=== PATIENT | male | born 1955 | race Caucasian/White ===

== ENCOUNTER 2023-08-23 15:37 | Outpatient (RCR) | payer OTHER, SELFPAY | END 2023-08-24 07:35 | disposition home or self-care (01) | LOC: RPT 15:37 | PROVIDERS: ATTENDING PHYSICIAN Orthopaedic Surgery; FAMILY PHYSICIAN Family Medicine | DX: Z47.1 Aftercare following joint replacement surgery (principal); Z96.642 Presence of left artificial hip joint; Z73.6 Limitation of activities due to disability | CPT/HCPCS: 97110 ==

== ENCOUNTER → 2023-10-25 15:22 | Outpatient (REF) | payer OTHER, SELFPAY | LOC: RAD 15:22 | PROVIDERS: ATTENDING PHYSICIAN Nurse Practitioner Family | DX: M79.672 Pain in left foot (principal) | CPT/HCPCS: 73630 ==

== ENCOUNTER → 2023-11-01 15:49 | Outpatient (REF) | payer OTHER, SELFPAY | LOC: RAD 15:49 | PROVIDERS: ATTENDING PHYSICIAN Internal Medicine Cardiovascular Disease; FAMILY PHYSICIAN Family Medicine | DX: I77.1 Stricture of artery (principal) | CPT/HCPCS: 73206; Q9967 ==

== ENCOUNTER 2024-04-30 15:04 | Emergency (ER) | payer OTHER, SELFPAY ==
[2024-04-30] VITALS (20 sets, daily range): BP systolic 103–241; BP diastolic 80–132; BMI 22.2
--- NOTE | 2024-04-30 17:47 | EDRN ---
Dr. Dos Santos in room w/ pt at this time.
[2024-04-30] MEDS: PEN VK 500 MG PO (18:07)
--- NOTE | 2024-04-30 18:49 | ED.GENMED ---
History of Present Illness
General
Chief Complaint: Dental Problem
Source: patient
Exam Limitations: none
Time Seen by Provider: 04/30/24 17:38
History of Present Illness
History of Present Illness:
69-year-old male who presents with left lower dental pain. He states that it started a few days ago and the pain is just getting worse and he cannot handle. He has an appoint with his dentist tomorrow. Patient states he just cannot think and
sleep because of the pain. He admits that he used to be on blood pressure medication but he no longer takes it. Patient does smoke. No fevers. No facial swelling
Past History
Past History
ED Past Medical History: HTN (takes Lisinopril) and Psychiatric (depression takes Effexor)
ED Past Surgical History: Appendectomy
Social History
Tobacco: Smoker
Alcohol: Occasional
Personal:
Living: with family
Employment: Employed ([employer])
Phy Exam
Physical Exam
Physical Exam:
CONSTITUTIONAL Vital signs reviewed, Patient alert and oriented to person, place and time. Well-appearing
HEAD atraumatic, normocephalic.
EYES eyelids normal to inspection, Extraocular muscles intact, Conjunctiva normal, Sclera normal.
ENT tenderness to the left lower molar when palpated. No gingival swelling. No trismus.
NECK normal range of motion, Trachea midline, no jugular venous distention.
RESP no respiratory distress
BACK No obvious deformities
UPPER EXTREMITY Gross Range of motion normal, gross motor strength normal
LOWER EXTREMITY Gross range of motion normal, Gross motor strength normal
NEURO Speech normal, No focal motor deficits include, [place] coma scale 15, Memory normal, Cranial Nerves intact to screening exam.
SKIN Skin warm, dry, and normal in color.
PSYCHIATRIC Patient oriented to person place and time, Normal affect.
Course
Orders/Labs/Results
Orders:
Orders
04/30/24 18:03
Penicillin V Potassium [Pen Vk] 500 mg PO NOW STA
04/30/24 19:01
Electrocardiogram (*1) Urgent
Reason for Study: Chest Pain
IV Insert/Care/Rem.- Treatment PRN
04/30/24 19:02
EKG- Treatment ONCE
04/30/24 19:06
Basic Metabolic Panel Urgent
Complete Blood Count/With Diff Urgent
04/30/24 19:27
Labetalol HCl [Trandate] 10 mg IV NOW STA
04/30/24 19:57
Amlodipine [Norvasc] 5 mg PO NOW STA
04/30/24 20:22
HydrALAZINE [Apresoline] 10 mg IV NOW STA
Abnormal Lab Results
04/30/24
19:06
WBC 13.3 H 10^3/uL
(4.8-10.8)
RBC 4.69 L 10^6/uL
(4.70-6.10)
Absolute Neuts (auto) 9.5 H 10^3/uL
(1.4-6.5)
Absolute Monos (auto) 1.1 H 10^3/uL
(0.1-0.6)
Lymphocytes % 17.8 L %
(20.5-51.1)
04/30/24 19:06
04/30/24 19:06
Vital Signs
Initial and Last Documented VS:
Initial Vital Signs
Temp Pulse Resp BP Pulse Ox
98.5 F 85 16 159/89 99
04/30/24 15:07 04/30/24 15:07 04/30/24 15:07 04/30/24 15:07 04/30/24 15:07
Last Documented Vital Signs
Temp Pulse Resp BP Pulse Ox
98.5 F 76 13 120/95 98
04/30/24 15:07 04/30/24 21:30 04/30/24 21:30 04/30/24 21:30 04/30/24 21:30
Procedures
Dentalgia
Dental Block: In. Jagdeep. Block
Abcess drained?: No
Pt tolerated procedure well w/ no immediate adverse effects?: Yes
Other: Inferior alveolar nerve block performed with 1.5 mL of Marcaine and 1.5 mL of lidocaine 1% with epinephrine. Patient tolerated procedure well with good
MDM/Problems Addressed
MDM/Problems Addressed:
Acute uncontrolled hypertension, dental apical abscess
*Pulse Oximetry
Patient hypoxic: no
*EKG
Interpreted by ED Provider?: Yes
Interpretation: normal
Rate: normal
Rhythm: sinus
Delta: normal axis
Interval: normal interval
QRS Pattern: normal QRS
Ischemia: no ischemia
*Critical Care Note
Total Time (30-74mins, 75-104mins- exclusive of procedures): 30 minutes
Data Reviewed
Review of Other/Old Records Reveals: Discharge Summary (Prior discharge summary from hip surgery reviewed revealing he was taken off of lisinopril) and Other (Prior vital signs reviewed and noted to be normotensive)
Source: patient
Patient Management
Escalation/DeEscalation of care consider admission/obs:
Blood pressure improved but does need further management at home. Start amlodipine. Patient is asymptomatic and will follow-up with dentist tomorrow for his dental infection. Treat with antibiotics. Feels better after inferior alveolar nerve
block
ED Attending Note
-
Portions of this chart may have been created with voice recognition software.� Occasional wrong word or��sound alike� substitutions may have occurred due to the inherent limitations of voice recognition software.
Discharge Plan
Departure
Patient Disposition: Home (Routine Discharge)
Date of Disposition: 04/30/24
Time of Disposition: 21:33
Patient with high blood pressure during this ER visit?: Yes
Discharge Problem:
Abscess, dental, Uncontrolled hypertension
Instructions: Dental Pain (DC), BLOOD PRESSURE
Prescriptions:
New
penicillin V potassium 500 mg tablet
500 mg PO QID Qty: 28 0RF
amlodipine 10 mg tablet
10 mg PO DAILY Qty: 30 0RF
No Action
venlafaxine 75 MG tablet
75 mg PO DAILY
atorvastatin [Lipitor] 10 MG tablet
10 mg PO DAILY
meloxicam 15 mg tablet
15 mg PO DAILY Qty: 14 0RF
Rx Instructions:
take with food
post-op
famotidine 20 mg tablet
20 mg PO HS Qty: 30 0RF
Rx Instructions:
post-op
dexamethasone 4 mg tablet
4 mg PO BID Qty: 6 0RF
Rx Instructions:
take with food
post-op use only
gabapentin 300 mg capsule
300 mg PO HS Qty: 10 0RF
oxycodone 5 mg tablet
5 - 10 mg PO Q6HPRN PRN (Reason: 1 tab moderate-2 tabs severe pain) Qty: 30 0RF
Patient Comments:
05/19/2023: last filled 04/22/23, 30 tabs for 8 days from [id number]
Rx Instructions:
Dx surgery
ongoing therapy
Post-op use
sennosides [Senokot] 8.6 mg tablet
17.2 mg PO BID Qty: 2 0RF
aspirin 325 mg tablet
325 mg PO DAILY Qty: 1 0RF
Rx Instructions:
Take with food
magnesium hydroxide [Milk of Magnesia] 400 mg/5 mL suspension
30 ml PO HS PRN (Reason: Constipation) Qty: 1 0RF
docusate sodium [Colace] 100 mg capsule
100 mg PO BID Qty: 1 0RF
acetaminophen [Tylenol] 325 mg capsule
650 mg PO QID Qty: 2 0RF
Referrals:
UNKNOWN - PT DOES,NOT KNOW [Family Provider] -
Activity Restrictions/Additional Instructions:
Please see your dentist tomorrow as planned. Return immediately for chest pain, shortness of breath, fevers, facial swelling or any other concerns
Your blood pressure was elevated while in the Emergency Department, please have your doctor re-evaluate it in the next 48 hours as untreated hypertension may lead to serious complications.
Interventions
Interventions:
*Risk Screen - Suicide Last Done: 04/30/24 16:16
*General Assessment Last Done: 04/30/24 16:16
*Neglect/Abuse Screening Last Done: 04/30/24 16:16
ED- Fall Risk Assessment Last Done: 04/30/24 16:16
*ED COVID-19 Vaccine History Last Done: 04/30/24 16:16
*Nursing Disposition Last Done: 04/30/24 21:38
Discharge Date and Time
Discharge Date/Time: 04/30/24 21:39
Print Language: YORUBA
--- NOTE | 2024-04-30 18:55 | EDRN ---
Dr. Dos Santos in room w/ pt. Pt states pain is less though BP remains high.
--- NOTE | 2024-04-30 18:58 | EDRN ---
Dr. Dos Santos needs a workup for hypertension at this time.
[2024-04-30 19:13] LABS: % Basophils 0.7 % (0-2); % Eosinophils 1.9 % (0-6); % Immature Granulocytes 0.3 % (0-0.5); % Lymphocytes 17.8 % (20.5-51.1); % Monocytes 8.2 % (1.7-9.3); % Neutrophils 71.1 % (42.2-75.2); Absolute Basophils 0.1 10^3/uL (0-0.2); Absolute Eosinophils 0.3 10^3/uL (0-0.7); Absolute Lymphocytes 2.4 10^3/uL (1.2-3.4); Absolute Monocytes 1.1 10^3/uL (0.1-0.6); Absolute Neutrophils 9.5 10^3/uL (1.4-6.5); Hematocrit 40.1 % (39.0-52.0); Hemoglobin 14.2 g/dL (13.0-18.0); Mean Corp Hgb Conc. 35.4 g/dL (33.0-37.0); Mean Corpuscular Hgb 30.3 pg (27.0-31.0); Mean Corpuscular Volume 85.5 fL (80.0-94.0); Mean Platelet Volume 9.1 fL (7.4-10.4); Nucleated Red Blood Cells % 0 % (-); Platelet Count 356 10^3/uL (130-400); Red Blood Cell Count 4.69 10^6/uL (4.70-6.10); Red Cell Dist. Width 13.5 % (11.5-14.5); White Blood Cell Count 13.3 10^3/uL (4.8-10.8)
[2024-04-30 19:26] LABS: Blood Urea Nitrogen 16 mg/dl (9-20); Calcium 9.9 mg/dl (8.4-10.2); Carbon Dioxide 24 mmol/L (22-30); Chloride 105 mmol/L (98-107); Estimated Creatinine Clearance 84 ml/min; Glucose 90 mg/dl (70-99); Potassium 3.9 mmol/L (3.5-5.1); Sodium 137 mmol/L (135-145); eGFR > 60.00
[2024-04-30] MEDS: TRANDATE 10 MG IV (19:36)
[2024-04-30] MEDS: NORVASC 5 MG PO (20:09)
[2024-04-30] MEDS: APRESOLINE 10 MG IV (20:29)
== END 2024-04-30 21:39 | disposition home or self-care (01) ==
LOC: EMR 15:04
PROVIDERS: EMERGENCY PHYSICIAN Emergency Medicine
DX: K04.7 Periapical abscess without sinus (principal); I10 Essential (primary) hypertension; F17.200 Nicotine dependence, unspecified, uncomplicated
CPT/HCPCS: 99284; 64400; 96374; 96375; 80048; 85025; 93005